=== PATIENT | male | born 1950 | race Asian ===

== ENCOUNTER 2017-01-04 08:49 | Inpatient (IN) | payer MEDICARE ==
[2017-01-04 10:06] LABS: Calcium 8.6 mg/dL (8.4-10.2); Chloride 110.4 mmol/L (98-107); Potassium 3.8 mmol/L (3.6-5.0)
[2017-01-04 10:23] LABS: Basophils % (Auto) 0.2 % (0.0-1.8); Eosinophils % (Auto) 14.3 % (0.0-4.3); Hematocrit 30.2 % (35.5-45.6); Hemoglobin 9.4 gm/dl (11.8-15.2); Mean Corpuscular HGB Conc 31 % (32-34); Mean Corpuscular Hemoglobin 28 pg (28-32); Mean Corpuscular Volume 91 fl (84-94); Platelet Count 206 K/mm3 (140-440); Red Blood Count 3.32 M/mm3 (3.65-5.03); White Blood Count 6.7 K/mm3 (4.5-11.0)
[2017-01-04 10:33] LABS: Red Cell Distribution Width 21.1 % (13.2-15.2)
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
[2017-01-04] MEDS ORDERED: NACL 0.9% 500 ML 500 ML IV SCH (11:00)
--- NOTE | 2017-01-04 11:03 | XRay Report ---
ABDOMEN RADIOGRAPHS INDICATION: Diarrhea. COMPARISON: None similar at this institution. FINDINGS: Frontal abdominal radiographs demonstrate nonobstructive bowel gas pattern. No focal suspicious calcifications, pneumatosis or pneumoperitoneum. Pelvic atherosclerotic vascular calcifications. Post CABG changes. Clear visualized lung bases. Left heart enlargement. EKG leads. Few spinal degenerative changes. CONCLUSION: No acute abdominal radiographic abnormality with few other findings, as above. Thank you for the opportunity to participate in this patient's care.
--- NOTE | 2017-01-04 12:57 | Ultrasound Report ---
ULTRASOUND RENAL INDICATION: BRITTANIE. COMPARISON: None similar. FINDINGS: Renal sonography suggests borderline/slight increased renal cortical echogenicity. Grossly preserved contours. No hydronephrosis. Gallbladder sludge and approximately 1 cm shadowing gallstone incidentally noted. RIGHT KIDNEY measures 9.6 x 4.8 x 3.9 cm with cortical thickness of 1.5 cm. LEFT KIDNEY estimated at 10.2 x 4.9 x 5.4 cm with cortical thickness of 1.1 cm. A 1.7 x 1.4 cm right interpolar cyst with a thin intrinsic septation and low level echoes. URINARY BLADDER within normal limits. CONCLUSION: Slight underlying medical renal disease, left renal cyst and gallbladder sludge/stones without acute renal abnormality, as described. Please correlate. Thank you for the opportunity to participate in this patient's care.
[2017-01-04] MEDS ORDERED: NACL 0.9% 500 ML 500 ML IV ONE (13:01)
[2017-01-04 13:53] LABS: Bilirubin,Urine NEG (Negative); Blood,Urine NEG (Negative); Ketones,Urine NEG (Negative); Leukocyte Esterase,Urine NEG (Negative); Mucus,Urine FEW /HPF; Nitrite,Urine NEG (Negative); Protein,Urine <15 mg/dL mg/dL (Negative); Urobilinogen,Urine < 2.0 mg/dL (<2.0)
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
[2017-01-04] MEDS ORDERED: DUONEB 0.5 MG-3 MG/3 ML SOLN IH PRN (14:03)
[2017-01-04] MEDS ORDERED: ZOFRAN IV PRN (14:03)
[2017-01-04] MEDS ORDERED: TYLENOL PO PRN (14:03)
--- NOTE | 2017-01-04 14:05 | Admit Criteria Form ---
Admission Criteria Documentation: GASTROENTEROLOGY GRG Clinical Indications for Admission to Inpatient Care (Place 'X' for any and all applicable criteria): Hospital admission is needed for appropriate care of the patient because of ANY ONE of the following: [ ]I. Hemoperitoneum(7) [ ]II. Ascites requiring acute treatment indicated by ANY ONE of the following( 8)(9): [ ]a) Hemodynamic instability remaining after emergency or observation level care (as appropriate) [ ]b) Peritoneal signs present (eg, abdominal rigidity, rebound tenderness, absent bowel sounds) [ ]c) Tachypnea, Hypoxemia, or other respiratory symptoms remain after emergency or observation level care (as appropriate) [ ]d) Suspected infected ascites as indicated by ANY ONE of the following: [ ]i) Temperature greater than 100 degrees F (37.8 degrees C) [ ]ii) Abdominal pain or tenderness not relieved by paracentesis [ ]iii) Systemic signs of infection (eg, elevated WBC count, fever) [ ]iv) Ascitic fluid analysis consistent with infection ( eg, elevated WBC count): [ ]v) Vital sign abnormality [ ]III. Suspected acute intra-abdominal process indicated by ANY ONE of the following(1)(2)(3)(4)(5): [ ]a) Hemodynamic instability [ ]b) Peritoneal signs present (eg, abdominal rigidity, rebound tenderness, absent bowel sounds) [ ]c) Bowel obstruction suspected (eg, severe vomiting, abdominal distension) [ ]d) Suspected mesenteric ischemia or ischemic colitis(6) [ ]e) Other signs or symptoms of acute abdominal disease (eg, severe pain, free air): [ ]IV. Severe liver disease indicated by ANY ONE of the following(8)(9)(10)(11)( 12)(13)(14): [ ]a) Acute hepatitis (eg, transaminase level greater than 1000 IU/L) [ ]b) Acute elevation of prothrombin time to more than 50% above normal or INR greater than 1.5 [ ]c) Bilirubin greater than 20 mg/dL (342 micromoles/L) (15) [ ]d) New-onset or worsening hepatic encephalopathy [ ]e) Acute liver necrosis [ ]f) Vomiting or dehydration that is severe of persistent [ ]g) Hemodynamic instability due to liver disease [ ]h) Acute renal failure [ ]i) Hepatic abscess [ ]j) Dehydration that is severe or persistent [ ]k) Hepatic hydrothorax(21) [ ]l) Other indications of severe liver disease (eg, persistent fever , ingestion of hepatotoxin) [ X]V. Severe diarrhea indicated by ANY ONE of the following(17)(18)(19)(20)(21) (22)(23): [ ]a) High fever or other high-risk infection situation [ ]b) Intractable bloody diarrhea (eg, more than 6 bloody stools per day) [ ]c) Suspected Clostridium difficile-associated diarrhea(24) [ ]d) Change in mental status that persists after emergency or observation level care (as appropriate) [ ]e) Severe dehydration (eg, greater than 9% loss of body weight in children) [ ]f) Inability to maintain hydration [ ]g) Peritoneal signs present (eg, abdominal rigidity, rebound tenderness, absent bowel sounds) [ ]h) Abdominal ischemia suspected(6) [ ]i) Hemodynamic instability that persists after emergency or observation level care (as appropriate) [ ]j) Severe electrolyte abnormalities requiring inpatient care [X ]k) Acute renal failure [ ]. Suspected toxic megacolon(5)(6) [ ]VII.Severe dysphagia indicated by ANY ONE of the following(25)(26): [ ]a) Suspected esophageal perforation or fistula(27) [ ]b) Suspected cause that requires inpatient care (eg, caustic ingestion, severe esophagitis) (28) [ ]c) Severe dehydration (eg, greater than 9% loss of body weight in children) [ ]d) Inability to manage secretions or maintain hydration [ ]e) Hemodynamic instability that persists after emergency or observation level care (as appropriate) [ ]f) Severe electrolyte abnormalities requiring inpatient care [ ]g) Acute renal failure [ ]VIII.Vomiting and ANY ONE of the following (29)(30)(31)(32): [ ]a) High fever or other high-risk infection situation [ ]b) Change in mental status that persists after emergency or observation level care (as appropriate) [ ]c) Severe dehydration (e.g., greater than 9% loss of body weight in children) [ ]d) Peritoneal signs present (e.g., abdominal rigidity, rebound tenderness, absent bowel sounds) [ ]e) Hemodynamic instability that persists after emergency or observation level care (as appropriate) [ ]f) Severe electrolyte abnormalities requiring inpatient care [ ]g) Acute renal failure [ ]h) Bowel obstruction suspected (e.g., severe vomiting, abdominal distension) [ ]i) Vomiting that is severe or persistent after medical treatment [ ]IX. Significant dehydration indicated by ANY ONE of the following(23)(24)(25) [ ]a) Clinical findings of severe dehydration indicated by ANY ONE of the following: [ ]i) Acute loss of weight from baseline (5% of body weight in adults, 9% in pediatric patients) [ ]ii) Hemodynamic instability [ ]iii) Acute renal failure [ ]iv) Serum sodium greater than 150 mEq/L (mmol/L) [ ]b) Dehydration that is persistent indicated by ALL of the following: [ ]i) Oral rehydration therapy not tolerated or insufficient to adequately correct dehydration [ ]ii) Appropriate intravenous treatment (eg, fluids) does not readily correct dehydration hours of (ie, after 12 to 24 of treatment) [ ]X. Gastroparesis and ANY ONE of the following(37)(38)(39): [ ]a) Dehydration that is severe or persistent [ ]b) Severe electrolyte abnormalities requiring inpatient care [ ]c) Acute renal failure [ ]d) Vomiting that is severe or persistent [ ]XI. Complications of transplanted liver indicated by ANY ONE of the following (40)(41): [ ]a) Acute graft rejection requiring inpatient management (eg, intravenous immunosuppression)(42) [ ]b) Failure of transplanted liver as indicated by ANY ONE of the following: [ ]i) Acute hepatitis (eg, transaminase level greater than 1000 International Units per liter (IU/L)) [ ]ii) Acute elevation of prothrombin time to more than 50% above baseline or INR greater than 1.5 [ ]iii) Bilirubin greater than 20 mg/dL (342 micromoles/L) [ ]iv) New-onset or worsening hepatic encephalopathy [ ]v) Acute elevation of serum ammonia level (eg, greater than 210 mcg/dL (150 micromoles/L)) [ ]vi) Acute liver necrosis [ ]c) Infection requiring inpatient management (eg, Hemodynamic instability, need for intravenous antimicrobial treatment)(43)(44)(45)(46)(47)(48)(49)(50) [ ]d) Other complication of transplanted liver (eg, thrombosis, autoimmune hepatitis, variceal bleeding) requiring inpatient management(51)(52) [ ]XII Complications of transplanted pancreas indicated by ANY ONE of the following(53): [ ]a) Acute graft rejection requiring inpatient management (eg, intravenous immunosuppression)(42)(54) [ ]b) Failure of transplanted pancreas as indicated by ANY ONE of the following: [ ]i) Serum amylase greater than 3 times the upper limit of normal or baseline [ ]ii) Serum lipase greater than 3 times the upper limit of normal or baseline [ ]iii) Imaging findings consistent with pancreatic inflammation or necrosis [ ]c) Infection requiring inpatient management (eg, Hemodynamic instability, need for intravenous antimicrobial treatment)(43)(44)(45)(46)(47)(48)(49)(50) [ ]d) Other complication of transplanted liver (eg, thrombosis, autoimmune hepatitis, variceal bleeding) requiring inpatient management(51)(52) [ ]X. Gastroenterology condition and ALL of the following: [ ]a) Symptom or finding for which emergency and observation care have failed or are not considered appropriate (Also use General Criteria: Observation Care as appropriate) [ ]b) Presence of ANY ONE of the following: [ ]i) A General Admission Criteria [ ]ii) A Pediatric General Admission Criteria. The original [facility] [employer] content created by [facility] [employer] has been revised. The portions of the content which have been revised are identified through the use of italic text or in bold,and [facility] has neither reviewed nor approved the modified material. All other unmodified content is copyright [facility]. Please see references footnoted in the original [facility] edition 2016 Admission Criteria Met: Yes
[2017-01-04] MEDS ORDERED: NITROSTAT SL PRN (14:06)
[2017-01-04] MEDS ORDERED: PROVENTIL IH PRN (14:20)
[2017-01-04] MEDS ORDERED: NACL 0.45% 1000 ML 1,000 ML IV SCH (15:00)
[2017-01-04] MEDS ORDERED: COREG PO SCH (22:00)
[2017-01-04] MEDS: COREG PO SCH (23:09)
[2017-01-05 07:25] LABS: Anion Gap 16 mmol/L; BUN/Creatinine Ratio 17.27; Blood Urea Nitrogen 19 mg/dL (9-20); Carbon Dioxide 17 mmol/L (22-30); Chloride 112.3 mmol/L (98-107); Glucose 64 mg/dL (75-100); Potassium 3.7 mmol/L (3.6-5.0); Sodium 142 mmol/L (137-145)
[2017-01-05] MEDS ORDERED: IMDUR PO SCH (10:00)
[2017-01-05] MEDS ORDERED: NON-FORMULARY (Memantine Hcl [Namenda] 10 MG) PO SCH (10:00)
[2017-01-05] MEDS: COREG PO SCH ×2 (11:22→22:40)
[2017-01-05] MEDS: ARICEPT PO SCH (11:22)
[2017-01-05] MEDS: HALFPRIN EC PO SCH (11:22)
[2017-01-05] MEDS: NAMENDA XR PO SCH (11:24)
[2017-01-05] MEDS: ZESTRIL PO SCH (11:25)
[2017-01-05] MEDS: PLAVIX PO SCH (11:25)
[2017-01-05] MEDS: IMDUR PO SCH (11:26)
--- NOTE | 2017-01-05 19:39 | Progress Note ---
Hospitalist Physical - Constitutional Vitals: Temp Pulse Resp BP Pulse Ox 98.8 F 72 18 119/60 99 01/05/17 14:45 01/05/17 14:45 01/05/17 14:45 01/05/17 14:45 01/05/17 14:45 General appearance: Present: cachectic Results - Labs CBC & Chem 7: 01/04/17 09:34 01/05/17 06:03 Labs: Laboratory Last Values WBC 6.7 K/mm3 (4.5-11.0) 01/04/17 09:34 RBC 3.32 M/mm3 (3.65-5.03) L 01/04/17 09:34 Hgb 9.4 gm/dl (11.8-15.2) L 01/04/17 09:34 Hct 30.2 % (35.5-45.6) L 01/04/17 09:34 MCV 91 fl (84-94) 01/04/17 09:34 MCH 28 pg (28-32) 01/04/17 09:34 MCHC 31 % (32-34) L 01/04/17 09:34 RDW 21.1 % (13.2-15.2) H 01/04/17 09:34 Plt Count 206 K/mm3 (140-440) 01/04/17 09:34 Lymph % (Auto) 25.7 % (13.4-35.0) 01/04/17 09:34 [place] % (Auto) 12.1 % (0.0-7.3) H 01/04/17 09:34 Eos % (Auto) 14.3 % (0.0-4.3) H 01/04/17 09:34 Baso % (Auto) 0.2 % (0.0-1.8) 01/04/17 09:34 Lymph # 1.7 K/mm3 (1.2-5.4) 01/04/17 09:34 [place] # 0.8 K/mm3 (0.0-0.8) 01/04/17 09:34 Eos # 1.0 K/mm3 (0.0-0.4) H 01/04/17 09:34 Baso # 0.0 K/mm3 (0.0-0.1) 01/04/17 09:34 Seg Neutrophils % 47.7 % (40.0-70.0) 01/04/17 09:34 Seg Neutrophils # 3.2 K/mm3 (1.8-7.7) 01/04/17 09:34 Sodium 142 mmol/L (137-145) 01/05/17 06:03 Potassium 3.7 mmol/L (3.6-5.0) 01/05/17 06:03 Chloride 112.3 mmol/L (98-107) H 01/05/17 06:03 Carbon Dioxide 17 mmol/L (22-30) L 01/05/17 06:03 Anion Gap 16 mmol/L 01/05/17 06:03 BUN 19 mg/dL (9-20) 01/05/17 06:03 Creatinine 1.1 mg/dL (0.8-1.5) 01/05/17 06:03 Estimated GFR > 60 ml/min 01/05/17 06:03 BUN/Creatinine Ratio 17.27 % 01/05/17 06:03 Glucose 64 mg/dL (75-100) L 01/05/17 06:03 POC Glucose 77 (70-105) 01/04/17 09:07 Calcium 9.0 mg/dL (8.4-10.2) 01/05/17 06:03 Urine Color Yellow (Yellow) 01/04/17 13:22 Urine Turbidity Clear (Clear) 01/04/17 13:22 Urine pH 5.0 (5.0-7.0) 01/04/17 13:22 Ur Specific [place] 1.014 (1.003-1.030) 01/04/17 13:22 Urine Protein <15 mg/dl mg/dL (Negative) 01/04/17 13:22 Urine Glucose (UA) Neg mg/dL (Negative) 01/04/17 13:22 Urine Ketones Neg mg/dL (Negative) 01/04/17 13:22 Urine Blood Neg (Negative) 01/04/17 13:22 Urine Nitrite Neg (Negative) 01/04/17 13:22 Urine Bilirubin Neg (Negative) 01/04/17 13:22 Urine Urobilinogen < 2.0 mg/dL (<2.0) 01/04/17 13:22 Ur Leukocyte Esterase Neg (Negative) 01/04/17 13:22 Urine WBC (Auto) 1.0 /HPF (0.0-6.0) 01/04/17 13:22 Urine RBC (Auto) 1.0 /HPF (0.0-6.0) 01/04/17 13:22 Urine Mucus Few /HPF 01/04/17 13:22
[2017-01-06] MEDS: HALFPRIN EC PO SCH (10:42)
[2017-01-06] MEDS: PLAVIX PO SCH (10:42)
[2017-01-06] MEDS: NAMENDA XR PO SCH (10:42)
[2017-01-06] MEDS: ARICEPT PO SCH (10:42)
[2017-01-06] MEDS: ZESTRIL PO SCH (10:44)
[2017-01-06] MEDS: COREG PO SCH (10:45)
[2017-01-06] MEDS: IMDUR PO SCH (10:45)
[2017-01-06 10:46] VITALS: BP 112/57
--- NOTE | 2017-01-06 13:03 | Discharge Summary ---
Providers - Providers Date of Admission: 01/04/17 14:03 Date of discharge: 01/06/17 Attending physician: VENKATA DE 01/06/17 10:06 Physical Therapy Evaluation and Treat [CONS] Urgent Comment: Reason For Exam: PT eval for SNF vs. home health Primary care physician: HERLINDA CONTRERAS Hospitalization Condition: Stable Pertinent studies: Abd X-ray Renal US Disposition: DISCHARGED TO HOME OR SELFCARE Time spent for discharge: 35 min Core Measure Documentation - Palliative Care Palliative Care/ Comfort Measures: Not Applicable - Core Measures Any of the following diagnoses?: none Exam - Constitutional Vitals: Temp Pulse Resp BP Pulse Ox 97.6 F 66 18 112/57 90 01/06/17 10:48 01/06/17 10:48 01/06/17 10:48 01/06/17 10:48 01/06/17 10:48 Plan Activity: advance as tolerated, fall precautions Diet: low cholesterol, low salt Follow up with: HERLINDA CONTRERAS MD [Primary Care Provider] - 3-5 Days Prescriptions: AtorvaSTATin [Lipitor] 40 mg PO QHS #30 tablet QUEtiapine [SEROquel] 200 mg PO QHS #30 tablet Nitroglycerin (Nf) [Nitrostat] 1 tab PO Q5MIN PRN #14 tablet MDD 3 PRN Reason: Chest Pain Aspirin EC [Aspirin Enteric Coated TAB] 81 mg PO QAM #30 tablet Carvedilol [Coreg] 2 tab PO BID #120 tablet Clopidogrel Bisulfate [Plavix] 75 mg PO QDAY #[address] [Depakote Dr] 500 mg PO BID #60 tablet Donepezil [Aricept] 5 mg PO QAM #30 tablet Folic Acid 0.4 mg PO QDAY #30 tablet ISOSORBIDE MONOnitrate [Imdur ER] 60 mg PO QAM #60 tablet Lisinopril [Zestril TAB] 10 mg PO QAM #15 tablet Memantine HCl [Namenda] 10 mg PO QAM #30 tablet Quetiapine Fumarate [Seroquel] 100 mg PO QAM #30 tablet Thiamine [Vitamin B-1] 100 mg PO QDAY #30 tablet
== END 2017-01-06 15:00 | disposition home or self-care (01) | DRG 683 ==
LOC: ED 08:49 → 3A 14:03
PROVIDERS: ADMIT Internal Medicine; ATTEND Internal Medicine
DX: N17.9 Acute kidney failure, unspecified (principal); E87.2 Acidosis; E86.0 Dehydration; K52.9 Noninfective gastroenteritis and colitis, unspecified; I50.9 Heart failure, unspecified; I25.10 Atherosclerotic heart disease of native coronary artery without angina pectoris; I11.0 Hypertensive heart disease with heart failure; G30.9 Alzheimer's disease, unspecified; F02.80 Dementia in other diseases classified elsewhere, unspecified severity, without behavioral disturbance, psychotic disturbance, mood disturbance, and anxiety; Z89.422 Acquired absence of other left toe(s); Z89.421 Acquired absence of other right toe(s); Z79.82 Long term (current) use of aspirin; Z79.899 Other long term (current) drug therapy; Z82.49 Family history of ischemic heart disease and other diseases of the circulatory system
CPT/HCPCS: 36415; 74020; 76770; 80048; 81001; 82962; 85025; 94760; 96360; 96361; A9270-GY; J7040